=== PATIENT | female | born 1995 | race African-American/Black ===

== ENCOUNTER 2018-01-27 05:59 | Emergency (ER) | payer OTHER ==
[~2018-01-27] VITALS: Ht 160 cm; Wt 52.3 kg
[2018-01-27] MEDS ORDERED: PERTUSS(ACELL),DIPH,TET VAC/PF 0.5 ML VIAL IM ONE (07:15)
[2018-01-27] MEDS ORDERED: BACITRACIN 0.9 GM PACKET OINTMENT TP ONE (07:15)
[2018-01-27 07:30] VITALS: BP 125/86
== END 2018-01-27 08:28 | disposition home or self-care (01) ==
LOC: EMS 06:00
DX: S01.511A Laceration without foreign body of lip, initial encounter (principal); S00.83XA Contusion of other part of head, initial encounter; Y04.0XXA Assault by unarmed brawl or fight, initial encounter; Y93.89 Activity, other specified; Y92.89 Other specified places as the place of occurrence of the external cause; Y99.8 Other external cause status
CPT/HCPCS: 90471; 90715; 99283